=== PATIENT | female | born 1960 | race Two or more races ===

== ENCOUNTER 2016-11-05 06:06 | Inpatient (IN) | payer BC ==
[~2016-11-05] VITALS: Ht 158.8 cm; Wt 62.1 kg
[2016-11-05] MEDS ORDERED: LEVO88TA5 PO (07:55)
[2016-11-05] MEDS ORDERED: CALC-34 PO (07:55)
[2016-11-05] MEDS ORDERED: DILT240C2 PO (07:55)
[2016-11-05] MEDS ORDERED: SIMV20TA6 PO (07:55)
[2016-11-05 08:00] VITALS: BP 116/82
[2016-11-05 08:45] LABS: BASOPHILS % (AUTO) 0.5 % (0.0-2.0); DIFF TOTAL % 100 %; EOSINOPHILS % (AUTO) 0.6 % (0.0-6.0); HEMATOCRIT 42 % (33-45); HEMOGLOBIN 13.9 g/dL (11.5-14.8); LYMPHOCYTES # (AUTO) 2.2 /CMM (0.8-4.8); LYMPHOCYTES % (AUTO) 42.8 % (20.0-44.0); MEAN CORPUSCULAR HEMOGLOBIN 30 PG (26.0-33.0); MEAN CORPUSCULAR HGB CONC 33 g/dl (31.0-36.0); MEAN CORPUSCULAR VOLUME 90 fL (82-100); MONOCYTES # (AUTO) 0.3 /CMM (0.1-1.30); MONOCYTES % (AUTO) 5.8 % (2.0-12.0); NEUTROPHILS # (AUTO) 2.6 /CMM (1.8-8.9); NEUTROPHILS % (AUTO) 50.3 % (43.0-81.0); PLATELET COUNT (AUTO) 241 /CMM (150-450); RED BLOOD CELL COUNT(AUTO) 4.72 MIL/uL (4.0-5.2); WHITE BLOOD COUNT (AUTO) 5.2 K/uL (4.3-11.0)
[2016-11-05 08:51] LABS: CALCIUM, SERUM 8.6 mg/dL (8.5-10.1); CREATININE 0.6 mg/dL (0.6-1.3)
[2016-11-05] MEDS ORDERED: BUPIVACAINE MPF W/EPI 0.25% 30 ML VIAL ONE (09:15)
[2016-11-05] MEDS ORDERED: LIDOCAINE HCL/PF 1% 30 ML SDV ONE (09:15)
[2016-11-05] MEDS ORDERED: ROCURONIUM BROMIDE 50 MG/5 ML ONE (09:25)
[2016-11-05] MEDS ORDERED: MIDAZOLAM HCL 2 MG/2ML VIAL ONE (09:25)
[2016-11-05] MEDS ORDERED: HYDROMORPHONE INJ 2 MG/ML DISP.SYRIN ONE (09:25)
[2016-11-05] MEDS ORDERED: FENTANYL PF 100MCG/2ML AMPUL ONE ×2 (09:25→10:38)
[2016-11-05] MEDS ORDERED: DESFLURANE 240 ML BOTTLE IH ONE (09:28)
[2016-11-05 11:35] VITALS: BP 112/70
[2016-11-05 12:05] VITALS: BP 110/72
[2016-11-05 12:35] VITALS: BP 112/62
[2016-11-05] MEDS ORDERED: MORPHINE SULFATE INJ 2 MG/ML DISP.SYRIN IV PRN (13:30)
[2016-11-05] MEDS ORDERED: IV D5/0.45 NACL W/20 MEQ KCL 1L IV PRN ×2 (13:30)
[2016-11-05] MEDS ORDERED: MORPHINE SULFATE INJ 4 MG/ML DISP.SYRIN IV PRN (13:30)
[2016-11-05] MEDS ORDERED: HYDROCODONE/APAP 5/325MG 1 EACH TABLET PO PRN ×2 (13:30)
== END 2016-11-05 16:25 | disposition home or self-care (01) | DRG 419 ==
LOC: DS 06:06 → MED 06:18
PROVIDERS: ADMIT Surgery; ATTEND Surgery
PROC: 0FT44ZZ Resection of Gallbladder, Percutaneous Endoscopic Approach (ICD-10-PCS; principal; 2016-11-05 09:58)
DX: K80.80 Other cholelithiasis without obstruction (principal); E03.9 Hypothyroidism, unspecified; E78.5 Hyperlipidemia, unspecified; I10 Essential (primary) hypertension; I25.10 Atherosclerotic heart disease of native coronary artery without angina pectoris; K21.9 Gastro-esophageal reflux disease without esophagitis; G47.00 Insomnia, unspecified
CPT/HCPCS: 36415; 80048-TC; 85025-TC; 85730-TC; 86850-TC; 88304-TC; 88305-TC; A4606; J1170; J2250; J3010; J3480; J3490

== ENCOUNTER 2016-11-10 00:43 | Emergency (ER) | payer BC ==
[~2016-11-10] VITALS: Ht 162.6 cm; Wt 56.7 kg
[~2016-11-10 00:43] MED LIST: CALC-34 PO; DILT240C2 PO; LEVO88TA5 PO; SIMV20TA6 PO
[2016-11-10] MEDS ORDERED: MORPHINE SULFATE INJ 2 MG/ML DISP.SYRIN IV ONE (01:00)
[2016-11-10] MEDS ORDERED: ONDANSETRON HCL/PF 4 MG/2 ML VIAL IVP ONE (01:00)
[2016-11-10] MEDS ORDERED: IV NS 0.9% 500 ML BAG IV ONE (01:00)
[2016-11-10 01:07] LABS: BASOPHILS % (AUTO) 0.2 % (0.0-2.0); DIFF TOTAL % 100 %; EOSINOPHILS % (AUTO) 0.3 % (0.0-6.0); HEMATOCRIT 41 % (33-45); HEMOGLOBIN 13.6 g/dL (11.5-14.8); LYMPHOCYTES # (AUTO) 1.7 /CMM (0.8-4.8); LYMPHOCYTES % (AUTO) 12.4 % (20.0-44.0); MEAN CORPUSCULAR HEMOGLOBIN 30 PG (26.0-33.0); MEAN CORPUSCULAR HGB CONC 33 g/dl (31.0-36.0); MEAN CORPUSCULAR VOLUME 90 fL (82-100); MONOCYTES # (AUTO) 1.1 /CMM (0.1-1.30); NEUTROPHILS # (AUTO) 10.8 /CMM (1.8-8.9); NEUTROPHILS % (AUTO) 79.1 % (43.0-81.0); PLATELET COUNT (AUTO) 245 /CMM (150-450); RED BLOOD CELL COUNT(AUTO) 4.59 MIL/uL (4.0-5.2); WHITE BLOOD COUNT (AUTO) 13.6 K/uL (4.3-11.0)
[2016-11-10] MEDS ORDERED: IV NS 0.9% 500 ML IV ONE (01:08)
[2016-11-10] MEDS ORDERED: IV SET PRIMARY 1 EA INFUS.SET MC ONE (01:08)
[2016-11-10 01:09] LABS: KETONES,URINE NEGATIVE (NEGATIVE); LEUKOCYTE ESTERASE ,URINE TRACE (NEGATIVE)
[2016-11-10 01:11] LABS: ADD UA MICROSCOPIC YES
[2016-11-10 01:12] LABS: PREGNANCY TEST URINE QUAL NEGATIVE (NEGATIVE)
[2016-11-10 01:17] LABS: CALCIUM, SERUM 9.3 mg/dL (8.5-10.1); CREATININE 1.1 mg/dL (0.6-1.3); POTASSIUM 3.5 mmol/L (3.5-5.1)
[2016-11-10 01:31] LABS: ADD URINE CULTURE NO
[2016-11-10 01:32] LABS: ALBUMIN 3.6 g/dL (3.4-5.0); BILIRUBIN,DIRECT 0.9 mg/dL (0.0-0.2); BILIRUBIN,TOTAL 1.7 mg/dL (0.2-1.0); INDIRECT BILIRUBIN 0.8 mg/dL (0.0-1.1); TOTAL PROTEIN, SERUM 7.8 g/dL (6.4-8.2); WBC,URINE 0-2 /HPF (0-3)
[2016-11-10] MEDS ORDERED: IOHEXOL 50 ML IV ONE (01:41)
[2016-11-10] MEDS ORDERED: IOHEXOL-300 100 ML VIAL IV ONE (01:41)
[2016-11-10] MEDS ORDERED: IV NS 0.9% 250 ML IV ONE (01:41)
[2016-11-10 03:13] VITALS: BP 116/87
== END 2016-11-10 03:14 | disposition home or self-care (01) ==
LOC: ER 00:47
DX: R33.9 Retention of urine, unspecified (principal); I10 Essential (primary) hypertension; Z90.49 Acquired absence of other specified parts of digestive tract
CPT/HCPCS: 36415; 51702; 74178; 80048; 80076; 81001; 83690; 84703; 85025; 99285; A4606; J7040; J7050; Q9967 ×2; Z7610; 81000-TC

== ENCOUNTER 2016-11-15 10:52 | Emergency (ER) | payer BC ==
[~2016-11-15] VITALS: Ht 152.4 cm; Wt 49.9 kg
[2016-11-15 12:11] LABS: KETONES,URINE Negative (NEGATIVE); LEUKOCYTE ESTERASE ,URINE Negative (NEGATIVE); PH,URINE 6.5 (5.0-8.0)
[2016-11-15 12:16] LABS: ADD UA MICROSCOPIC YES; WBC,URINE 0-2 /HPF (0-3)
[2016-11-15 12:17] LABS: ADD URINE CULTURE NO
[2016-11-15 12:50] VITALS: BP 142/80
== END 2016-11-15 12:50 | disposition home or self-care (01) ==
LOC: ER 10:53
DX: R33.9 Retention of urine, unspecified (principal); R31.29 Other microscopic hematuria; E78.00 Pure hypercholesterolemia, unspecified; I10 Essential (primary) hypertension; Z98.890 Other specified postprocedural states
CPT/HCPCS: 51702; 81001; 87086; 99284; A4606; Z7610; 81000-TC

== ENCOUNTER → 2017-01-17 | Outpatient (CLI) | payer BC ==
[2017-01-17 09:37] LABS: ALBUMIN 3.9 g/dL (3.4-5.0); BILIRUBIN,TOTAL 0.4 mg/dL (0.2-1.0); CREATININE 0.7 mg/dL (0.6-1.3)
[2017-01-17 09:39] LABS: THYROID STIMULATING HORMONE 1.41 uIU/mL (0.358-3.74)
[2017-01-17 15:30] LABS: APPEARANCE,URINE CLEAR (CLEAR); BILIRUBIN,URINE NEGATIVE (NEGATIVE); BLOOD, URINE NEGATIVE Ery/uL (NEGATIVE); COLOR,URINE YELLOW (YELLOW); KETONES,URINE NEGATIVE (NEGATIVE); LEUKOCYTE ESTERASE ,URINE NEGATIVE (NEGATIVE); NITRITE, URINE NEGATIVE (NEGATIVE); PROTEIN,URINE NEGATIVE (NEGATIVE); UGLUCOSE NEGATIVE (NEGATIVE); UROBILINOGEN,URINE 0.2 EU/dL (0.2)
== END ==
LOC: LAB 08:08
DX: I10 Essential (primary) hypertension (principal); E78.5 Hyperlipidemia, unspecified; E03.9 Hypothyroidism, unspecified
CPT/HCPCS: 36415; 80053-TC; 80061-TC; 81000-TC; 84443-TC; 84481; 87086-TC

== ENCOUNTER 2017-04-23 07:07 | Outpatient (CLI) | payer BC ==
[2017-04-23 08:24] LABS: ALBUMIN 3.6 g/dL (3.4-5.0); BILIRUBIN,TOTAL 0.6 mg/dL (0.2-1.0); CALCIUM, SERUM 8.6 mg/dL (8.5-10.1); CREATININE 0.7 mg/dL (0.6-1.3); POTASSIUM 3.6 mmol/L (3.5-5.1); THYROID STIMULATING HORMONE 1.435 uIU/mL (0.358-3.74); TOTAL PROTEIN, SERUM 7.6 g/dL (6.4-8.2)
== END 2017-04-23 23:59 | disposition home or self-care (01) ==
LOC: LAB 07:07
DX: I10 Essential (primary) hypertension (principal); E78.5 Hyperlipidemia, unspecified; E03.9 Hypothyroidism, unspecified
CPT/HCPCS: 36415; 80053-TC; 80061-TC; 84443-TC

== ENCOUNTER 2017-08-07 08:07 | Outpatient (CLI) | payer BC ==
[2017-08-07 09:05] LABS: BILIRUBIN,TOTAL 0.5 mg/dL (0.2-1.0); CALCIUM, SERUM 8.7 mg/dL (8.5-10.1); CREATININE 0.7 mg/dL (0.6-1.3); POTASSIUM 3.7 mmol/L (3.5-5.1); TOTAL PROTEIN, SERUM 7.7 g/dL (6.4-8.2)
== END 2017-08-07 23:59 | disposition home or self-care (01) ==
LOC: LAB 08:07
DX: E78.2 Mixed hyperlipidemia (principal); I10 Essential (primary) hypertension; R73.9 Hyperglycemia, unspecified
CPT/HCPCS: 36415; 80053-TC